=== PATIENT | female | born 1985 | race Caucasian/White ===

== ENCOUNTER 2016-09-04 22:48 | Emergency (ER) | payer MEDICAID ==
[2016-09-04 22:58] VITALS: BP 110/63; PULSE 120; RESP 18; TEMP 98.2; O2SAT 100
[2016-09-04 23:15] LABS: AUTOMATED NEUTROPHIL # 8.1 TH/MM3 (1.8-7.7); BASOPHIL # 0.1 TH/MM3 (0-0.2); BASOPHIL % 0.9 % (0.0-2.0); EOSINOPHIL # 0.1 TH/MM3 (0-0.4); EOSINOPHIL % 0.5 % (0.0-4.0); HEMATOCRIT 35.9 % (35.0-46.0); HEMO FLAGS DIFF FINAL; LYMPH % 18.5 % (9.0-44.0); LYMPHOCYTE # 2.1 TH/MM3 (1.0-4.8); MEAN CELL VOLUME 85.7 FL (80.0-100.0); MEAN CORPUSCULAR HEMOGLOBIN 29.7 PG (27.0-34.0); MEAN CORPUSCULAR HGB CONC 34.6 % (32.0-36.0); MONO % 7.6 % (0.0-8.0); NEUT % 72.5 % (16.0-70.0); PLATELET COUNT 259 TH/MM3 (150-450); RED BLOOD COUNT 4.19 MIL/MM3 (4.00-5.30); RED CELL DISTRIBUTION WIDTH 12.4 % (11.6-17.2); WHITE BLOOD COUNT 11.1 TH/MM3 (4.0-11.0)
--- NOTE | 2016-09-04 23:19 | PD ---
HPI Chief Complaint: Psychiatric Symptoms Time Seen by Provider: 23:19 Travel History International Travel<30 days: No Contact w/Intl Traveler<30days: No Traveled to known affect area: No History of Present Illness HPI 30-year-old female who is approximately 27 weeks , presents to emergency department under Mcnally act for psychiatric evaluation. Patient has been staying at [facility]. Today she left for a free day and came back intoxicated. Patient allegedly was belligerent and uncooperative with staff. Police were contacted and the patient was brought in for evaluation. Patient denies alcohol use. Denies illegal drug use. States that she was trying to leave [place] and that is why they Mcnally acted her. Denies abdominal pain , nausea, vomiting. No vaginal bleeding or discharge. No other symptoms to report. PFSH Past Medical History ?: Social History Alcohol Use: Yes Tobacco Use: Yes Substance Use: No Allergies-Medications (Allergen,Severity, Reaction): Coded Allergies: No Known Allergies (Unverified , 09/04/16) Reported Meds & Prescriptions Reported Meds & Active Scripts Active No Active Prescriptions or Reported Medications Review of Systems Except as stated in HPI: all other systems reviewed are Neg Physical Exam Narrative GENERAL: Well-nourished female patient, in no acute distress SKIN: Warm and dry. HEAD: Atraumatic. Normocephalic. EYES: Pupils equal and round. No scleral icterus. No injection or drainage. ENT: No nasal bleeding or discharge. Mucous membranes pink and moist. NECK: Trachea midline. No JVD. CARDIOVASCULAR: Tachycardic rate and rhythm. No murmur appreciated. RESPIRATORY: No accessory muscle use. Clear to auscultation. Breath sounds equal bilaterally. GASTROINTESTINAL: Abdomen nontender, nondistended. Patient has what appears to be a abdomen. Hepatic and splenic margins not palpable. MUSCULOSKELETAL: No obvious deformities. No clubbing. No cyanosis. No edema. NEUROLOGICAL: Awake and alert. No obvious cranial nerve deficits. Motor grossly within normal limits. Normal speech. Data Data Last Documented VS Vital Signs Date Time Temp Pulse Resp B/P Pulse Ox O2 Delivery O2 Flow Rate FiO2 09/04/16 22:58 98.2 120 18 110/63 100 Orders Complete Blood Count With Diff (09/04/16 22:56) Comprehensive Metabolic Panel (09/04/16 22:56) Psych Screen (09/04/16 22:56) Alcohol (Ethanol) (09/04/16 22:56) Drug Screen, Random Urine (09/04/16 22:57) Labs Laboratory Tests Test 09/04/16 22:52 White Blood Count 11.1 TH/MM3 Red Blood Count 4.19 MIL/MM3 Hemoglobin 12.4 GM/DL Hematocrit 35.9 % Mean Corpuscular Volume 85.7 FL Mean Corpuscular Hemoglobin 29.7 PG Mean Corpuscular Hemoglobin 34.6 % Concent Red Cell Distribution Width 12.4 % Platelet Count 259 TH/MM3 Mean Platelet Volume 7.7 FL Neutrophils (%) (Auto) 72.5 % Lymphocytes (%) (Auto) 18.5 % Monocytes (%) (Auto) 7.6 % Eosinophils (%) (Auto) 0.5 % Basophils (%) (Auto) 0.9 % Neutrophils # (Auto) 8.1 TH/MM3 Lymphocytes # (Auto) 2.1 TH/MM3 Monocytes # (Auto) 0.8 TH/MM3 Eosinophils # (Auto) 0.1 TH/MM3 Basophils # (Auto) 0.1 TH/MM3 CBC Comment DIFF FINAL Differential Comment Sodium Level 141 MEQ/L Potassium Level 3.8 MEQ/L Chloride Level 110 MEQ/L Carbon Dioxide Level 20.0 MEQ/L Anion Gap 11 MEQ/L Blood Urea Nitrogen 6 MG/DL Creatinine 0.65 MG/DL Estimat Glomerular Filtration 107 ML/MIN Rate Random Glucose 108 MG/DL Calcium Level 8.1 MG/DL Total Bilirubin 0.1 MG/DL Aspartate Amino Transf 13 U/L (AST/SGOT) Alanine Aminotransferase 19 U/L (ALT/SGPT) Alkaline Phosphatase 65 U/L Total Protein 7.4 GM/DL Albumin 3.1 GM/DL Urine Opiates Screen NEG Urine Barbiturates Screen NEG Urine Amphetamines Screen NEG Urine Benzodiazepines Screen NEG Urine Cocaine Screen NEG Urine Cannabinoids Screen NEG Ethyl Alcohol Level 117 MG/DL MDM Medical Decision Making Medical Screen Exam Complete: Yes Emergency Medical Condition: Yes Medical Record Reviewed: Yes Differential Diagnosis versus substance abuse versus alcohol consumption versus intoxication versus mood disorder versus personality disorder Narrative Course 30-year-old female presents to emergency department for evaluation. She appears without distress. She is agitated and mildly tachycardic. CBC and BMP are without acute concern. Toxicology is negative. EtOH is 117. Patient is medically cleared to undergo psychiatric screening for further evaluation and disposition. Mental health screening discussed with the patient. Psychiatric screen ordered. Diagnosis Primary Impression: Alcohol intoxication Qualified Code: F10.129 - Alcohol intoxication, with unspecified complication Additional Impression: Qualified Code: Z3A.49 - More than 42 weeks gestation of Scripts No Active Prescriptions or Reported Meds Condition: Stable Cori Ferreira Sep 04, 2016 23:19
[2016-09-04 23:25] LABS: AMPHETAMINE, URINE NEG (NEG); BARBITURATES, URINE NEG (NEG); COCAINE, URINE NEG (NEG)
[2016-09-04 23:37] LABS: ALKALINE PHOSPHATASE 65 U/L (45-117); ALT (GPT) 19 U/L (10-53); AST (GOT) 13 U/L (15-37); BLOOD UREA NITROGEN 6 MG/DL (7-18); CHLORIDE 110 MEQ/L (98-107); GLOMERULAR FILTRATION RATE 107 ML/MIN (>89); POTASSIUM 3.8 MEQ/L (3.5-5.1); SODIUM (NA) 141 MEQ/L (136-145); TOTAL BILIRUBIN ADULT 0.1 MG/DL (0.2-1.0)
[2016-09-04 23:38] LABS: ANION GAP 11 MEQ/L (5-15)
[2016-09-05 03:17] VITALS: BP 112/68; PULSE 98; RESP 18; O2SAT 100
[2016-09-05] MEDS ORDERED: CALCIUM CARBONATE 500 MG CHEWABLE TAB CHEW ONE (04:15)
[2016-09-05] MEDS ORDERED: ACETAMINOPHEN 325 MG TAB PO ONE (04:15)
[2016-09-05 06:05] VITALS: BP 115/58; PULSE 92; RESP 18; O2SAT 100
--- NOTE | 2016-09-05 09:01 | PD ---
History of Present Illness Chief Complaint: Psychiatric Symptoms Time Seen by Provider: 08:45 Travel History International Travel<30 Days: No Contact w/Intl Traveler<30days: No Known affected area: No Legal Status Legal Status: Involuntary Mcnally Act Signed By: LIYA RDZ [id number] Mcnally Act Comment: CERTIFICATE OF PROFESSIONAL INITIATING INVOLUNTARY EXAMINATION History of Present Illness: History of Present Illness HPI 30-year-old female with history of alcohol abuse who is approximately 27 weeks . She presents to emergency department under Mcnally act for psychiatric evaluation. She is a resident of [facility] and has been there for the past 3 months. Yesterday she went out with her family and she had 2 glasses of wine while she was out. Upon her return to the residence she was confronted and as per the BA report she became belligerent and was threatening to leave the residence . Staff felt she was placing herself and her unborn child at risk by doing so and therefore she was placed under a BA. She presented with BAL of 117. Negative for any other substance. Patient is seen at main ED. She is clinically sober. Alert, oriented, calm and engaging. There is no indication of any thought process or content disturbance. Mood is euthymic. She does not present any suicidal or homicidal ideation, intent t or plan. She states " I did something really stupid and impulsive. I don't want to hurt myself or my baby". She has been in communication with her family who are supportive. She plans on returning to her residence. As per EMR she has had [place] previous contact [place] [facility] [place] Past Medical History ?: Psychiatric History Psychiatric History Hx Psychiatric Treatment: DENIES any previous paych history History of Inpatient Treatment: No Guns or firearms in home: No Social History Single female resides at [facility] x 3 mos. No children. Currently 27 weeks . Born in [place] Hx Alcohol Use: Yes Hx Tobacco Use: Yes Substance Use Type: Alcohol (Reports sober since May 2015.), Marijuana Hx of Substance Use Treatment: Yes Family Psychiatric History none Allergies-Medications (Allergen,Severity, Reaction): Coded Allergies: No Known Allergies (Unverified , 09/04/16) Reported Meds & Prescriptions Reported Meds & Active Scripts Active No Active Prescriptions or Reported Medications Review of Systems Except as stated in HPI: all other systems reviewed are Neg Exam Alert: Yes [place]: Person (ox4) Mood: Calm Affect: Euthymic Speech: Clear, Logical Eye Contact: Normal Memory Intact: Comment (no imp[airmetn) Hallucinations: Other (negative) Delusions: No Suicidal: Ideation (Denies any) Homicidal: Ideation (Denies any) Insight/Judgement Fair. Not impaired MDM Medical Decision Making Medical Record Reviewed: Yes Assessment/Plan 30 year old female who is under a BA after she consumed 2 glasses of wine and threatened to leave her residence on foot. n Staff felt she was placing herself in danger and that she was making irrational decisions. At this time she is clinically sober and does not verbalize any suicidal or homicidal ideation, intent otr plan and does not meet criteria for BA Cleared from psychiatry for discharge Recommend abstinence. Lift BA Orders Complete Blood Count With Diff (09/04/16 22:56) Comprehensive Metabolic Panel (09/04/16 22:56) Psych Screen (09/04/16 22:56) Alcohol (Ethanol) (09/04/16 22:56) Drug Screen, Random Urine (09/04/16 22:57) Acetaminophen (Tylenol) (09/05/16 04:15) Calcium Carbonate Chew (Tums Chew) (09/05/16 04:15) Diet Regular Basic (09/05/16 Breakfast) Results Vital Signs Date Time Temp Pulse Resp B/P Pulse Ox O2 Delivery O2 Flow Rate FiO2 09/05/16 06:05 92 18 115/58 100 Room Air 09/05/16 03:17 98 18 112/68 100 Room Air 09/04/16 22:58 98.2 120 18 110/63 100 Laboratory Tests Test 09/04/16 22:52 White Blood Count 11.1 Red Blood Count 4.19 Hemoglobin 12.4 Hematocrit 35.9 Mean Corpuscular Volume 85.7 Mean Corpuscular Hemoglobin 29.7 Mean Corpuscular Hemoglobin 34.6 Concent Red Cell Distribution Width 12.4 Platelet Count 259 Mean Platelet Volume 7.7 Neutrophils (%) (Auto) 72.5 Lymphocytes (%) (Auto) 18.5 Monocytes (%) (Auto) 7.6 Eosinophils (%) (Auto) 0.5 Basophils (%) (Auto) 0.9 Neutrophils # (Auto) 8.1 Lymphocytes # (Auto) 2.1 Monocytes # (Auto) 0.8 Eosinophils # (Auto) 0.1 Basophils # (Auto) 0.1 CBC Comment DIFF FINAL Differential Comment Sodium Level 141 Potassium Level 3.8 Chloride Level 110 Carbon Dioxide Level 20.0 Anion Gap 11 Blood Urea Nitrogen 6 Creatinine 0.65 Estimat Glomerular Filtration 107 Rate Random Glucose 108 Calcium Level 8.1 Total Bilirubin 0.1 Aspartate Amino Transf 13 (AST/SGOT) Alanine Aminotransferase 19 (ALT/SGPT) Alkaline Phosphatase 65 Total Protein 7.4 Albumin 3.1 Urine Opiates Screen NEG Urine Barbiturates Screen NEG Urine Amphetamines Screen NEG Urine Benzodiazepines Screen NEG Urine Cocaine Screen NEG Urine Cannabinoids Screen NEG Ethyl Alcohol Level 117 Diagnosis Primary Impression: Alcohol intoxication Additional Impression: Psychiatrically Cleared: Yes Med/ Other Pt Specific Info: No Meds Exist/No RX given Prescriptions No Active Prescriptions or Reported Meds Condition: Stable Problem Qualifiers Primary Impression: Alcohol intoxication Qualified Code: F10.129 - Alcohol intoxication, with unspecified complication Additional Impression: Qualified Code: Z3A.49 - More than 42 weeks gestation of Jennifer Stephenson Sep 05, 2016 09:01
== END 2016-09-05 09:48 | disposition short-term general hospital (02) ==
LOC: NEPA 22:48
DX: O26.892 Other specified pregnancy related conditions, second trimester (principal); F10.129 Alcohol abuse with intoxication, unspecified; R45.1 Restlessness and agitation; R00.0 Tachycardia, unspecified; Z72.0 Tobacco use; Z3A.27 27 weeks gestation of pregnancy
CPT/HCPCS: 80053; 80307; 80320; 85025; 99284